=== PATIENT | female | born 1960 | race Caucasian/White ===

== ENCOUNTER → 2019-10-13 | Day surgery (SDC) | payer BC ==
[~2019-10-13] MED LIST: Ketamine 200 MG/20 ML MDV IV ONE; Lactated Ringers 1,000 ML IV SCH; Propofol 200 MG/20 ML SDV IV ONE
[2019-10-13 12:37] VITALS: BP 149/84; PULSE 74
--- NOTE | 2019-10-13 15:26 | OR ---
DATE OF OPERATION: 10/13/2019 PREOPERATIVE DIAGNOSIS: 1. FAMILY HISTORY OF COLON CANCER. 2. HISTORY OF POLYPS. POSTOPERATIVE DIAGNOSIS: 1. FAMILY HISTORY OF COLON CANCER. 2. HISTORY OF POLYPS. SURGEON: Jayy Dumont MD PROCEDURE: FULL-LENGTH COLONOSCOPY WITH FORCEPS POLYP REMOVAL X1. ANESTHESIA: MAC. COMPLICATIONS: None. SPECIMEN: Small sessile polyp, distal sigmoid colon. FINDINGS: 1. Full-length colonoscopy. 2. Marginal prep. 3. Moderate sigmoid diverticulosis. 4. Sessile polyp, sigmoid colon, less than 5 mm. RECOMMENDATIONS: Followup colonoscopy in 5 years. INDICATIONS: The patient has a family history of colon cancer. Prior colonoscopies have had polyps removed. She is due for a 5-year surveillance scope. DESCRIPTION OF PROCEDURE: The patient was prepped and draped, placed in the left lateral decubitus position. A lubricated Olympus colonoscope was inserted and with ease advanced to the cecum. Unfortunately, the patient's prep was quite poor and hard to see in the cecal pouch. There was just so much volume of stool and could not get a great look in the pouch itself, got up alongside the ileocecal valve and there was just too much solid stool present there to suction. Throughout areas of the colon, there was a lot of stool. Most of this could be suctioned and was liquid, but smaller lesions certainly could have been missed. Upon withdrawal, the right transverse and descending colons were unremarkable. Just past the splenic flexure, the patient had prominent diverticular disease all the way to the rectosigmoid region, moderate in severity. No inflammatory changes seen. There was 1 small polyp around 35 cm which was flat, approximately 3 to 4 mm, removed in its entirety with a forceps. The rectal vault appeared benign. Retroflexion showed no perianal lesions. Air was suctioned, scope removed without complication. LUZ MARIA/BILLIE /[id number]
== END ==
LOC: CC.SDS 10:36
PROVIDERS: ATTEND Family Medicine
DX: Z12.11 Encounter for screening for malignant neoplasm of colon (principal); D12.5 Benign neoplasm of sigmoid colon; K57.30 Diverticulosis of large intestine without perforation or abscess without bleeding; F32.9 Major depressive disorder, single episode, unspecified; I10 Essential (primary) hypertension; E78.5 Hyperlipidemia, unspecified; E66.9 Obesity, unspecified; Z86.010 Personal history of colon polyps; Z79.899 Other long term (current) drug therapy; Z80.0 Family history of malignant neoplasm of digestive organs; Z98.890 Other specified postprocedural states; Z87.891 Personal history of nicotine dependence; Z68.42 Body mass index [BMI] 45.0-49.9, adult
CPT/HCPCS: 45380; J2704; J7120

== ENCOUNTER 2021-03-28 11:00 | Inpatient (IN) | payer BC ==
[2021-03-28 12:02] LABS: CHLORIDE,CL 102 mEq/L (98-106); SODIUM,NA 144 mEq/L (136-145)
[2021-03-28 12:18] LABS: PTT,PARTIAL THROMBOPLSTIN TIME 25.6 SEC (23.2-32.3)
[2021-03-28] MEDS ORDERED: Iopamidol 755 Mg/ML 100 ML Bottle IVPUSH ONE (13:07)
[2021-03-28] MEDS ORDERED: Sodium Chloride 0.9% 10 ML Syringe FLUSH PRN (13:17)
[2021-03-28] MEDS ORDERED: Ibuprofen 200 MG Tab PO PRN (13:17)
[2021-03-28] MEDS ORDERED: Dexamethasone 4 MG/ML SDV IVPUSH SCH (13:17)
[2021-03-28] MEDS ORDERED: Acetaminophen 325 MG Tab PO PRN (13:17)
[2021-03-28] MEDS ORDERED: REMDESIVIR 200 MG in Sodium Chloride 0.9% 250 ML IV ONE ×2 (13:17→18:00)
--- NOTE | 2021-03-28 13:50 | EDM.PDOC ---
ED HPI GENERAL MEDICAL PROBLEM - General Chief Complaint: Respiratory Problem Stated Complaint: COVID +-increase SOB Time Seen by Provider: 03/28/21 11:35 Source of Information: Reports: Patient History Limitations: Reports: No Limitations - History of Present Illness INITIAL COMMENTS - FREE TEXT/NARRATIVE: Maxime is a 60 year old female who is Covid + presents to the ED with c/o increasing shortness of breath. She reports onset of symptoms approximately last March 20. Was seen in clinic March 25 and tested positive for covid. She is not vaccinated. She did receive Regen Cov monoclonal antibodies. She reports since that time, she has become increasing short of breath. Reports she feels short of breath with talking. Cough has also become worse. Reports she has also been having headaches for which she has been taking Excedrin migraine. She was having sharp abdominal pain. Was advised to start omeprazole and this has seemed to improve it some. Does report occasional she will still have some abdominal pain. Has been having diarrhea. No vomiting or nausea. Has decreased appetite and feels weak. Has not been eating or drinking much. Reports she has been having some sharp pain between her shoulder blades. Unsure if this worsens with deep breaths. Onset Date: 03/20/21 Duration: Getting Worse Location: Reports: Chest Associated Symptoms: Reports: Chest Pain, Cough, cough w sputum, Headaches, Loss of Appetite, Malaise, Shortness of Breath, Weakness. Denies: Confusion, Diaphoresis, Fever/Chills, Nausea/Vomiting, Rash, Seizure, Syncope Treatments BALL HOLDER: Reports: Other (see below) (Excedrin Migraine) Upper Back Pain Score (Numeric/FACES): 4 - Related Data Allergies Allergy/AdvReac Type Severity Reaction Status Date / Time No Known Allergies Allergy Verified 03/28/21 11:47 Home Meds: Home Meds Ibuprofen [Advil] 200 mg PO DAILY PRN 06/11/14 [History] Fish Oil/[place]-3 Fatty Acids [Fish Oil] 2 gm PO DAILY 04/15/15 [History] Hydrochlorothiazide 25 mg PO DAILY 04/15/15 [History] Ascorbic Acid [Vitamin C] 1,000 mg PO DAILY 08/09/15 [History] Acetaminophen 650 mg PO BID PRN 10/11/19 [History] Aspirin/Acetaminophen/Caffeine [Excedrin Migraine Caplet] 2 tab PO BID PRN 10/11/19 [History] Cholecalciferol (Vitamin D3) [Vitamin D3] 1,000 unit PO DAILY 10/11/19 [History] Coconut Oil 2,000 mg PO DAILY 10/11/19 [History] Gabapentin [Neurontin] 300 mg PO TID 10/11/19 [History] Magnesium Oxide [Magnesium] 400 mg PO DAILY 10/11/19 [History] Nabumetone [Relafen Ds] 500 mg PO BID 10/11/19 [History] Rosuvastatin Calcium 20 mg PO DAILY 10/11/19 [History] Ubidecarenone [Co Q-10] 100 mg PO DAILY 10/11/19 [History] Folic Acid 1 mg PO DAILY 03/28/21 [History] Past Medical History HEENT History: Reports: Impaired Vision Cardiovascular History: Reports: High Cholesterol, Hypertension Musculoskeletal History: Reports: Other (See Below) Other Musculoskeletal History: HIP PAIN - Infectious Disease History Infectious Disease History: Reports: Chicken Pox, Measles, Mumps - Past Surgical History HEENT Surgical History: Reports: Tonsillectomy Female Surgical History: Reports: Section Social & Family History - Tobacco Use Tobacco Use Status *Q: Former Tobacco User Years of Tobacco use: 18 Packs/Tins Daily: 1.5 Used Tobacco, but Quit: Yes Month/Year Tobacco Last Used: 20 - Caffeine Use Caffeine Use: Reports: Coffee, Tea - Recreational Drug Use Recreational Drug Use: No ED ROS GENERAL - Review of Systems Review Of Systems: Comprehensive ROS is negative, except as noted in HPI. ED EXAM, GENERAL - Physical Exam Exam: See Below Exam Limited By: No Limitations General Appearance: Alert, WD/WN, No Apparent Distress Eye Exam: Bilateral Eye: EOMI, Normal Fundi, Normal Inspection, PERRL Nose: Nasal Swelling, Nasal Drainage Throat/Mouth: Normal Inspection, Normal Lips, Normal Teeth, Normal Gums, Normal Oropharynx, Normal Voice, No Airway Compromise Head: Atraumatic, Normocephalic Neck: Normal Inspection, Supple, Non-Tender, Full Range of Motion Respiratory/Chest: No Respiratory Distress, No Accessory Muscle Use, Chest Non- Tender, Wheezing (diffuse) Cardiovascular: Normal Peripheral Pulses, Regular Rate, Rhythm, No Edema, No Gallop, No JVD, No Murmur, No Rub GI/Abdominal: Normal Bowel Sounds, Soft, No Organomegaly, No Distention, No Abnormal Bruit, No Mass, Tender (mild tenderness bilateral lower quadrants) Extremities: Non-Tender, No Pedal Edema, Normal Capillary Refill Neurological: Alert, Oriented, CN II-XII Intact, Normal Cognition, Normal Gait, Normal Reflexes, No Motor/Sensory Deficits Psychiatric: Normal Affect, Normal Mood Skin Exam: Warm, Dry, Intact, Normal Color, No Rash Lymphatic: No Adenopathy Course - Vital Signs Last Recorded V/S: Last Vital Signs Temp 97.9 F 03/28/21 13:17 Pulse 66 03/28/21 13:17 Resp 18 03/28/21 13:17 BP 137/91 H 03/28/21 13:17 Pulse Ox 96 03/28/21 13:17 - Orders/Labs/Meds Orders: Active Orders 24 hr Category Date Time Status CTA Chest W WO Contrast [Ang Chest] [CT] Stat Exams 03/28/21 12:44 Ordered Chest 1V Frontal [CR] Stat Exams 03/28/21 11:21 Taken Medication Orders Acetaminophen (Acetaminophen 325 Mg Tab) 650 mg PO Q4H PRN PRN Reason: Pain (Mild 1-3)/fever Dexamethasone (Dexamethasone 4 Mg/Ml Sdv) 6 mg IVPUSH DAILY RISHI Stop: 04/06/21 08:01 Enoxaparin Sodium (Enoxaparin 40 Mg/0.4 Ml Syringe) 40 mg SUBCUT Q24H RISHI Potassium Chloride/Sodium Chloride (Normal Saline With 20 Meq Kcl) 1,000 mls @ 100 mls/hr IV ASDIRECTED RISHI Stop: 03/28/21 23:59 Ibuprofen (Ibuprofen 200 Mg Tab) 400 mg PO Q6H PRN PRN Reason: Pain (mild 1-3) Potassium Chloride (Potassium Chloride 10 Meq Tab.Er) 20 meq PO BIDMEALS RISHI Sodium Chloride (Sodium Chloride 0.9% 10 Ml Syringe) 10 ml FLUSH ASDIRECTED PRN PRN Reason: Keep Vein Open Labs: Laboratory Tests 03/28/21 03/28/21 03/28/21 Range/Units 11:38 11:38 11:38 WBC 3.4 L (4.0-11.0) 10^3/uL RBC 5.75 H (4.00-5.50) x10^6/uL Hgb 16.4 H (12.0-16.0) g/dL Hct 49.7 H (37.0-47.0) % MCV 86.4 (83.0-97.0) fL MCH 28.5 (27.0-32.0) pg MCHC 33.0 (32.0-36.0) g/dL RDW Coeff of Jay 12.7 (11.0-15.0) % Plt Count 169 (150-400) 10^3/uL Immature Gran % (Auto) 0.3 (0.0-4.9) % Neut % (Auto) 60.1 (41-71) % Lymph % (Auto) 30.1 (24-44) % [place] % (Auto) 8.9 (0-10) % Eos % (Auto) 0.3 (0-6) % Baso % (Auto) 0.3 (0-1) % Neut # (Auto) 2.02 (1.80-8.00) x10^3/uL Lymph # (Auto) 1.01 (0.60-5.00) 10^3/uL [place] # (Auto) 0.30 (0.00-1.50) 10^3/uL Eos # (Auto) 0.01 (0.00-1.50) 10^3/uL Baso # (Auto) 0.01 (0.00-0.50) 10^3/uL Immature Gran # (Auto) 0.01 (0.00-0.49) 10^3/uL PT 10.7 (9.7-12.3) SEC INR 0.98 (0.92-1.18) APTT 25.6 (23.2-32.3) SEC D-Dimer, Quantitative 0.95 H (0.00-0.50) Sodium 144 (136-145) mEq/L Potassium 3.0 L (3.5-5.0) mEq/L Chloride 102 (98-106) mEq/L Carbon Dioxide 33 H (21-32) mmol/L BUN 13 (7-18) mg/dL Creatinine 0.8 (0.6-1.0) mg/dL Est Cr Clr Drug Dosing 73.63 mL/min Estimated GFR (MDRD) > 60 (>=60) mL/min Glucose 132 H (75-99) mg/dL Lactic Acid (0.4-2.0) mmol/L Calcium 9.2 (8.4-10.1) mg/dL Total Bilirubin 0.6 (0.0-1.0) mg/dL AST 54 H (15-37) U/L ALT 60 (12-78) U/L Alkaline Phosphatase 112 (46-116) U/L Creatine Kinase 137 (21-215) U/L Troponin I High Sens 11.1 (<=51) pg/mL NT-Pro-B Natriuret Pep 53 (0-1000) pg/mL Total Protein 7.3 (6.4-8.2) g/dL Albumin 3.4 (3.4-5.0) g/dL 03/28/21 Range/Units 11:38 WBC (4.0-11.0) 10^3/uL RBC (4.00-5.50) x10^6/uL Hgb (12.0-16.0) g/dL Hct (37.0-47.0) % MCV (83.0-97.0) fL MCH (27.0-32.0) pg MCHC (32.0-36.0) g/dL RDW Coeff of Jay (11.0-15.0) % Plt Count (150-400) 10^3/uL Immature Gran % (Auto) (0.0-4.9) % Neut % (Auto) (41-71) % Lymph % (Auto) (24-44) % [place] % (Auto) (0-10) % Eos % (Auto) (0-6) % Baso % (Auto) (0-1) % Neut # (Auto) (1.80-8.00) x10^3/uL Lymph # (Auto) (0.60-5.00) 10^3/uL [place] # (Auto) (0.00-1.50) 10^3/uL Eos # (Auto) (0.00-1.50) 10^3/uL Baso # (Auto) (0.00-0.50) 10^3/uL Immature Gran # (Auto) (0.00-0.49) 10^3/uL PT (9.7-12.3) SEC INR (0.92-1.18) APTT (23.2-32.3) SEC D-Dimer, Quantitative (0.00-0.50) Sodium (136-145) mEq/L Potassium (3.5-5.0) mEq/L Chloride (98-106) mEq/L Carbon Dioxide (21-32) mmol/L BUN (7-18) mg/dL Creatinine (0.6-1.0) mg/dL Est Cr Clr Drug Dosing mL/min Estimated GFR (MDRD) (>=60) mL/min Glucose (75-99) mg/dL Lactic Acid 0.9 (0.4-2.0) mmol/L Calcium (8.4-10.1) mg/dL Total Bilirubin (0.0-1.0) mg/dL AST (15-37) U/L ALT (12-78) U/L Alkaline Phosphatase (46-116) U/L Creatine Kinase (21-215) U/L Troponin I High Sens (<=51) pg/mL NT-Pro-B Natriuret Pep (0-1000) pg/mL Total Protein (6.4-8.2) g/dL Albumin (3.4-5.0) g/dL Meds: Medications Generic Name Dose Route Start Last Admin Trade Name Freq PRN Reason Stop Dose Admin Acetaminophen 650 mg 03/28/21 13:17 Acetaminophen 325 Mg Tab PO Q4H PRN Pain (Mild 1-3)/fever Dexamethasone 6 mg 03/28/21 13:17 Dexamethasone 4 Mg/Ml Sdv IVPUSH 04/06/21 08:01 DAILY [facility] Enoxaparin Sodium 40 mg 03/28/21 20:00 Enoxaparin 40 Mg/0.4 Ml Syringe SUBCUT Q24H [facility] Potassium Chloride/Sodium Chloride 1,000 mls @ 100 mls/hr 03/28/21 14:00 Normal Saline With 20 Meq Kcl IV 03/28/21 23:59 ASDIRECTED RISHI Ibuprofen 400 mg 03/28/21 13:17 Ibuprofen 200 Mg Tab PO Q6H PRN Pain (mild 1-3) Potassium Chloride 20 meq 03/28/21 17:30 Potassium Chloride 10 Meq Tab.Er PO BIDMEALS RISHI Sodium Chloride 10 ml 03/28/21 13:17 Sodium Chloride 0.9% 10 Ml Syringe FLUSH ASDIRECTED PRN Keep Vein Open Discontinued Medications Generic Name Dose Route Start Last Admin Trade Name Freq PRN Reason Stop Dose Admin Remdesivir 200 mg/ Sodium 250 mls @ 250 mls/hr 03/28/21 13:17 Chloride IV 03/28/21 13:18 ONETIME ONE Iopamidol 100 ml 03/28/21 13:07 Iopamidol 755 Mg/Ml 100 Ml Bottle IVPUSH 03/28/21 13:08 ONETIME ONE - Re-Assessments/Exams Free Text/Narrative Re-Assessment/Exam: 03/28/21 13:52 Discussed lab results with patient. With mildly elevated D-Dimer, shortness of breath and mid thoracic pain, will proceed with CTA chest. 03/28/21 16:26 Unfortunately, unable to get PIV access after multiple attempts. Unable to proceed with CTA chest. Patient refuses further IV access attempts at this time. Departure - Departure Time of Disposition: 13:53 Disposition: Admitted As Inpatient 67 Condition: Fair Clinical Impression: COVID-19, Hypoxia - Discharge Information *PRESCRIPTION DRUG MONITORING PROGRAM REVIEWED*: Not Applicable *COPY OF PRESCRIPTION DRUG MONITORING REPORT IN PATIENT BRANDON: Not Applicable Sepsis Event Note (ED) - Focused Exam Vital Signs: Vital Signs Temp Pulse Resp BP Pulse Ox Pulse Ox 03/28/21 11:59 69 22 H 133/110 H 94 L 03/28/21 11:29 97.6 F 76 18 145/96 H 88 L 03/28/21 11:25 88 L - Problem List & Annotations (1) COVID-19 SNOMED Code(s): 167466037 Code(s): U07.1 - COVID-19 Status: Acute Current Visit: Yes (2) Hypoxia SNOMED Code(s): 213274116 Code(s): R09.02 - HYPOXEMIA Status: Acute Current Visit: Yes - Problem List Review Problem List Initiated/Reviewed/Updated: Yes - My Orders Last 24 Hours: My Active Orders 03/28/21 11:21 Chest 1V Frontal [CR] Stat 03/28/21 12:44 CTA Chest W WO Contrast [Ang Chest] [CT] Stat - Assessment/Plan Admission H&P: Please use this note as an admission H&P Last 24 Hours: My Active Orders 03/28/21 11:21 Chest 1V Frontal [CR] Stat 03/28/21 12:44 CTA Chest W WO Contrast [Ang Chest] [CT] Stat Assessment:: Covid 19 Hypoxia Plan: Patient will be admitted acute with telemetry. Will start Remdesivir once PIV access obtained. Start dexamethasone 6 mg PO daily. O2 to keep sats > 92%. Push fluids. K 3.0. Will start K supplements. Daily labs. Encouraged patient to push fluids.
[2021-03-28] MEDS ORDERED: NS + KCl 20mEq/L 1,000 ML IV SCH (14:00)
[2021-03-28] MEDS ORDERED: ACETAMINOPHEN PO PRN (16:33)
[2021-03-28] MEDS ORDERED: CAFFEINE PO PRN (16:33)
[2021-03-28] MEDS ORDERED: ASPIRIN PO PRN (16:33)
[2021-03-28] MEDS: Dexamethasone 4 MG Tab PO SCH (16:42)
[2021-03-28] MEDS: Potassium Chloride 10 MEQ Tab.ER PO SCH (16:42)
[2021-03-28] MEDS: Enoxaparin 40 MG/0.4 ML Syringe SUBCUT SCH (21:32)
[2021-03-28] MEDS: Gabapentin 300 MG Cap PO SCH (21:32)
[2021-03-28] MEDS: NABUMETONE 500 MG PO SCH (23:30)
[2021-03-29 07:36] LABS: PTT,PARTIAL THROMBOPLSTIN TIME 22.3 SEC (23.2-32.3)
[2021-03-29 07:38] LABS: CHLORIDE,CL 104 mEq/L (98-106); SODIUM,NA 144 mEq/L (136-145)
[2021-03-29] MEDS ORDERED: Non-Formulary Medication 1 Each (Ubidecarenone [Co Q-10] 100 MG Capsule) PO SCH (08:00)
[2021-03-29] MEDS: Cholecalciferol (Vitamin D3) 25 MCG Tab PO SCH (08:09)
[2021-03-29] MEDS: Dexamethasone 4 MG Tab PO SCH (08:09)
[2021-03-29] MEDS: Hydrochlorothiazide 25 MG Tab PO SCH (08:09)
[2021-03-29] MEDS: Folic Acid 1 MG Tab PO SCH (08:10)
[2021-03-29] MEDS: Gabapentin 300 MG Cap PO SCH ×3 (08:10→19:37)
[2021-03-29] MEDS: Potassium Chloride 10 MEQ Tab.ER PO SCH ×2 (08:10→17:17)
[2021-03-29] MEDS: Ascorbic Acid 500 MG Tab PO SCH (08:10)
[2021-03-29] MEDS: NABUMETONE 500 MG PO SCH ×2 (08:11→19:39)
--- NOTE | 2021-03-29 10:57 | PCM.PN ---
- General Info Date of Service: 03/29/21 Admission Dx/Problem (Free Text): COVID-19, hypoxia, viral pneumonia Subjective Update: This is a 60 year old female that was admitted yesterday with COVID-19 and pneumonia. Report that she is feeling better today. States that she does have continued shortness of breath when walking. Has had diarrhea. Reports her appetite is improving. She stated she felt like she may want to return home and would discuss this with her . Reports continued cough and fatigue. Functional Status: Reports: Tolerating Diet, Ambulating - Review of Systems General: Reports: Weakness, Fatigue Pulmonary: Reports: Shortness of Breath, Cough. Denies: Wheezing Cardiovascular: Reports: Dyspnea on Exertion Gastrointestinal: Reports: Diarrhea. Denies: Abdominal Pain, Constipation Genitourinary: Reports: No Symptoms Skin: Reports: Pallor Neurological: Reports: Weakness Psychiatric: Reports: No Symptoms - Patient Data Vitals - Most Recent: Last Vital Signs Temp 99.1 F 03/29/21 04:00 Pulse 80 03/29/21 04:00 Resp 20 03/29/21 04:00 BP 142/68 H 03/29/21 04:00 Pulse Ox 93 L 03/29/21 04:00 Weight - Most Recent: 294 lb 6.4 oz Lab Results Last 24 Hours: Laboratory Results - last 24 hr 03/28/21 03/28/21 03/28/21 Range/Units 11:38 11:38 11:38 WBC 3.4 L (4.0-11.0) 10^3/uL RBC 5.75 H (4.00-5.50) x10^6/uL Hgb 16.4 H (12.0-16.0) g/dL Hct 49.7 H (37.0-47.0) % MCV 86.4 (83.0-97.0) fL MCH 28.5 (27.0-32.0) pg MCHC 33.0 (32.0-36.0) g/dL RDW Coeff of Jay 12.7 (11.0-15.0) % Plt Count 169 (150-400) 10^3/uL Immature Gran % (Auto) 0.3 (0.0-4.9) % Neut % (Auto) 60.1 (41-71) % Lymph % (Auto) 30.1 (24-44) % [place] % (Auto) 8.9 (0-10) % Eos % (Auto) 0.3 (0-6) % Baso % (Auto) 0.3 (0-1) % Neut # (Auto) 2.02 (1.80-8.00) x10^3/uL Lymph # (Auto) 1.01 (0.60-5.00) 10^3/uL [place] # (Auto) 0.30 (0.00-1.50) 10^3/uL Eos # (Auto) 0.01 (0.00-1.50) 10^3/uL Baso # (Auto) 0.01 (0.00-0.50) 10^3/uL Immature Gran # (Auto) 0.01 (0.00-0.49) 10^3/uL PT 10.7 (9.7-12.3) SEC INR 0.98 (0.92-1.18) APTT 25.6 (23.2-32.3) SEC D-Dimer, Quantitative 0.95 H (0.00-0.50) Sodium 144 (136-145) mEq/L Potassium 3.0 L (3.5-5.0) mEq/L Chloride 102 (98-106) mEq/L Carbon Dioxide 33 H (21-32) mmol/L BUN 13 (7-18) mg/dL Creatinine 0.8 (0.6-1.0) mg/dL Est Cr Clr Drug Dosing 73.63 mL/min Estimated GFR (MDRD) > 60 (>=60) mL/min Glucose 132 H (75-99) mg/dL Lactic Acid (0.4-2.0) mmol/L Calcium 9.2 (8.4-10.1) mg/dL Total Bilirubin 0.6 (0.0-1.0) mg/dL Direct Bilirubin (0.0-0.3) mg/dL AST 54 H (15-37) U/L ALT 60 (12-78) U/L Alkaline Phosphatase 112 (46-116) U/L Creatine Kinase 137 (21-215) U/L Troponin I High Sens 11.1 (<=51) pg/mL C-Reactive Protein (0.2-0.8) mg/dL NT-Pro-B Natriuret Pep 53 (0-1000) pg/mL Total Protein 7.3 (6.4-8.2) g/dL Albumin 3.4 (3.4-5.0) g/dL 03/28/21 03/29/21 03/29/21 Range/Units 11:38 07:15 07:15 WBC 2.0 L (4.0-11.0) 10^3/uL RBC 5.42 (4.00-5.50) x10^6/uL Hgb 15.6 (12.0-16.0) g/dL Hct 46.9 (37.0-47.0) % MCV 86.5 (83.0-97.0) fL MCH 28.8 (27.0-32.0) pg MCHC 33.3 (32.0-36.0) g/dL RDW Coeff of Jay 12.6 (11.0-15.0) % Plt Count 161 (150-400) 10^3/uL Immature Gran % (Auto) 1.5 (0.0-4.9) % Neut % (Auto) 62.4 (41-71) % Lymph % (Auto) 27.7 (24-44) % [place] % (Auto) 7.9 (0-10) % Eos % (Auto) 0.0 (0-6) % Baso % (Auto) 0.5 (0-1) % Neut # (Auto) 1.26 L (1.80-8.00) x10^3/uL Lymph # (Auto) 0.56 L (0.60-5.00) 10^3/uL [place] # (Auto) 0.16 (0.00-1.50) 10^3/uL Eos # (Auto) 0.00 (0.00-1.50) 10^3/uL Baso # (Auto) 0.01 (0.00-0.50) 10^3/uL Immature Gran # (Auto) 0.03 (0.00-0.49) 10^3/uL PT 10.7 (9.7-12.3) SEC INR 0.98 (0.92-1.18) APTT 22.3 L (23.2-32.3) SEC D-Dimer, Quantitative (0.00-0.50) Sodium (136-145) mEq/L Potassium (3.5-5.0) mEq/L Chloride (98-106) mEq/L Carbon Dioxide (21-32) mmol/L BUN (7-18) mg/dL Creatinine (0.6-1.0) mg/dL Est Cr Clr Drug Dosing mL/min Estimated GFR (MDRD) (>=60) mL/min Glucose (75-99) mg/dL Lactic Acid 0.9 (0.4-2.0) mmol/L Calcium (8.4-10.1) mg/dL Total Bilirubin (0.0-1.0) mg/dL Direct Bilirubin (0.0-0.3) mg/dL AST (15-37) U/L ALT (12-78) U/L Alkaline Phosphatase (46-116) U/L Creatine Kinase (21-215) U/L Troponin I High Sens (<=51) pg/mL C-Reactive Protein (0.2-0.8) mg/dL NT-Pro-B Natriuret Pep (0-1000) pg/mL Total Protein (6.4-8.2) g/dL Albumin (3.4-5.0) g/dL 03/29/21 03/29/21 Range/Units 07:15 07:15 WBC (4.0-11.0) 10^3/uL RBC (4.00-5.50) x10^6/uL Hgb (12.0-16.0) g/dL Hct (37.0-47.0) % MCV (83.0-97.0) fL MCH (27.0-32.0) pg MCHC (32.0-36.0) g/dL RDW Coeff of Jay (11.0-15.0) % Plt Count (150-400) 10^3/uL Immature Gran % (Auto) (0.0-4.9) % Neut % (Auto) (41-71) % Lymph % (Auto) (24-44) % [place] % (Auto) (0-10) % Eos % (Auto) (0-6) % Baso % (Auto) (0-1) % Neut # (Auto) (1.80-8.00) x10^3/uL Lymph # (Auto) (0.60-5.00) 10^3/uL [place] # (Auto) (0.00-1.50) 10^3/uL Eos # (Auto) (0.00-1.50) 10^3/uL Baso # (Auto) (0.00-0.50) 10^3/uL Immature Gran # (Auto) (0.00-0.49) 10^3/uL PT (9.7-12.3) SEC INR (0.92-1.18) APTT (23.2-32.3) SEC D-Dimer, Quantitative (0.00-0.50) Sodium 144 (136-145) mEq/L Potassium 3.4 L (3.5-5.0) mEq/L Chloride 104 (98-106) mEq/L Carbon Dioxide 28 (21-32) mmol/L BUN 11 (7-18) mg/dL Creatinine 0.9 (0.6-1.0) mg/dL Est Cr Clr Drug Dosing 65.45 mL/min Estimated GFR (MDRD) > 60 (>=60) mL/min Glucose 176 H D (75-99) mg/dL Lactic Acid (0.4-2.0) mmol/L Calcium 8.8 (8.4-10.1) mg/dL Total Bilirubin 0.5 (0.0-1.0) mg/dL Direct Bilirubin 0.2 (0.0-0.3) mg/dL AST 79 H (15-37) U/L ALT 103 H (12-78) U/L Alkaline Phosphatase 116 (46-116) U/L Creatine Kinase (21-215) U/L Troponin I High Sens (<=51) pg/mL C-Reactive Protein 0.3 (0.2-0.8) mg/dL NT-Pro-B Natriuret Pep (0-1000) pg/mL Total Protein 6.9 (6.4-8.2) g/dL Albumin 3.2 L (3.4-5.0) g/dL Med Orders - Current: Current Medications Acetaminophen (Acetaminophen 325 Mg Tab) 650 mg PO Q4H PRN PRN Reason: Pain (Mild 1-3)/fever Ascorbic Acid (Ascorbic Acid 500 Mg Tab) 1,000 mg PO DAILY PENDING SALE TO [facility] Last Admin: 03/29/21 08:10 Dose: 1,000 mg Documented by: Cholecalciferol (Cholecalciferol (Vitamin D3) 25 Mcg Tab) 25 mcg PO DAILY PENDING SALE TO [facility] Last Admin: 03/29/21 08:09 Dose: 25 mcg Documented by: Dexamethasone (Dexamethasone 4 Mg Tab) 6 mg PO DAILY PENDING SALE TO [facility] Last Admin: 03/29/21 08:09 Dose: 6 mg Documented by: Enoxaparin Sodium (Enoxaparin 40 Mg/0.4 Ml Syringe) 40 mg SUBCUT Q24H PENDING SALE TO [facility] Last Admin: 03/28/21 21:32 Dose: 40 mg Documented by: Folic Acid (Folic Acid 1 Mg Tab) 1 mg PO DAILY PENDING SALE TO [facility] Last Admin: 03/29/21 08:10 Dose: 1 mg Documented by: Gabapentin (Gabapentin 300 Mg Cap) 300 mg PO TID PENDING SALE TO [facility] Last Admin: 03/29/21 08:10 Dose: 300 mg Documented by: Hydrochlorothiazide (Hydrochlorothiazide 25 Mg Tab) 25 mg PO DAILY PENDING SALE TO [facility] Last Admin: 03/29/21 08:09 Dose: 25 mg Documented by: Ibuprofen (Ibuprofen 200 Mg Tab) 400 mg PO Q6H PRN PRN Reason: Pain (mild 1-3) Last Admin: 03/28/21 21:33 Dose: 400 mg Documented by: Magnesium Oxide (Magnesium Oxide 250 Mg Tab) 500 mg PO DAILY PENDING SALE TO [facility] Last Admin: 03/29/21 08:09 Dose: 500 mg Documented by: Aspirin/Acetaminophen/Caffeine 250/250/65 Own Med 2 tab PO BID PRN PRN Reason: Headache Nabutone [Relafen] 500 Mg Tablet Own Med 500 mg PO BID PENDING SALE TO [facility] Last Admin: 03/29/21 08:11 Dose: 500 mg Documented by: Non-Formulary Medication (Ubidecarenone [Co Q-10]) 100 mg PO DAILY PENDING SALE TO [facility] Potassium Chloride (Potassium Chloride 10 Meq Tab.Er) 20 meq PO BIDMEALS PENDING SALE TO [facility] Last Admin: 03/29/21 08:10 Dose: 20 meq Documented by: Simvastatin (Simvastatin 40 Mg Tab) 40 mg PO BEDTIME PENDING SALE TO [facility] Sodium Chloride (Sodium Chloride 0.9% 10 Ml Syringe) 10 ml FLUSH ASDIRECTED PRN PRN Reason: Keep Vein Open Discontinued Medications Dexamethasone (Dexamethasone 4 Mg/Ml Sdv) 6 mg IVPUSH DAILY PENDING SALE TO [facility] Stop: 04/06/21 08:01 Last Admin: 03/28/21 16:40 Dose: Not Given Documented by: Potassium Chloride/Sodium Chloride (Normal Saline With 20 Meq Kcl) 1,000 mls @ 100 mls/hr IV ASDIRECTED RISHI Stop: 03/28/21 23:59 Last Admin: 03/28/21 21:39 Dose: 100 mls/hr Documented by: Remdesivir 200 mg/ Sodium (Chloride) 250 mls @ 250 mls/hr IV ONETIME ONE Stop: 03/28/21 18:59 Last Admin: 03/28/21 18:45 Dose: 250 mls/hr Documented by: Iopamidol (Iopamidol 755 Mg/Ml 100 Ml Bottle) 100 ml IVPUSH ONETIME ONE Stop: 03/28/21 13:08 - Exam General: Alert, Oriented, Cooperative, Mild Distress Neck: Trachea Midline, No JVD Lungs: Clear to Auscultation, Decreased Breath Sounds (diminished bilateral b ases) Cardiovascular: Regular Rate, Regular Rhythm, No Murmurs GI/Abdominal Exam: Normal Bowel Sounds, Soft, Non-Tender, No Distention (Female) Exam: Deferred Extremities: Normal Range of Motion, No Pedal Edema Skin: Warm, Dry, Intact Neurological: No New Focal Deficit Psy/Mental Status: Alert, Normal Affect, Normal Mood - Patient Data Lab Results Last 24 hrs: Laboratory Results - last 24 hr 03/28/21 03/28/21 03/28/21 Range/Units 11:38 11:38 11:38 WBC 3.4 L (4.0-11.0) 10^3/uL RBC 5.75 H (4.00-5.50) x10^6/uL Hgb 16.4 H (12.0-16.0) g/dL Hct 49.7 H (37.0-47.0) % MCV 86.4 (83.0-97.0) fL MCH 28.5 (27.0-32.0) pg MCHC 33.0 (32.0-36.0) g/dL RDW Coeff of Jay 12.7 (11.0-15.0) % Plt Count 169 (150-400) 10^3/uL Immature Gran % (Auto) 0.3 (0.0-4.9) % Neut % (Auto) 60.1 (41-71) % Lymph % (Auto) 30.1 (24-44) % [place] % (Auto) 8.9 (0-10) % Eos % (Auto) 0.3 (0-6) % Baso % (Auto) 0.3 (0-1) % Neut # (Auto) 2.02 (1.80-8.00) x10^3/uL Lymph # (Auto) 1.01 (0.60-5.00) 10^3/uL [place] # (Auto) 0.30 (0.00-1.50) 10^3/uL Eos # (Auto) 0.01 (0.00-1.50) 10^3/uL Baso # (Auto) 0.01 (0.00-0.50) 10^3/uL Immature Gran # (Auto) 0.01 (0.00-0.49) 10^3/uL PT 10.7 (9.7-12.3) SEC INR 0.98 (0.92-1.18) APTT 25.6 (23.2-32.3) SEC D-Dimer, Quantitative 0.95 H (0.00-0.50) Sodium 144 (136-145) mEq/L Potassium 3.0 L (3.5-5.0) mEq/L Chloride 102 (98-106) mEq/L Carbon Dioxide 33 H (21-32) mmol/L BUN 13 (7-18) mg/dL Creatinine 0.8 (0.6-1.0) mg/dL Est Cr Clr Drug Dosing 73.63 mL/min Estimated GFR (MDRD) > 60 (>=60) mL/min Glucose 132 H (75-99) mg/dL Lactic Acid (0.4-2.0) mmol/L Calcium 9.2 (8.4-10.1) mg/dL Total Bilirubin 0.6 (0.0-1.0) mg/dL Direct Bilirubin (0.0-0.3) mg/dL AST 54 H (15-37) U/L ALT 60 (12-78) U/L Alkaline Phosphatase 112 (46-116) U/L Creatine Kinase 137 (21-215) U/L Troponin I High Sens 11.1 (<=51) pg/mL C-Reactive Protein (0.2-0.8) mg/dL NT-Pro-B Natriuret Pep 53 (0-1000) pg/mL Total Protein 7.3 (6.4-8.2) g/dL Albumin 3.4 (3.4-5.0) g/dL 03/28/21 03/29/21 03/29/21 Range/Units 11:38 07:15 07:15 WBC 2.0 L (4.0-11.0) 10^3/uL RBC 5.42 (4.00-5.50) x10^6/uL Hgb 15.6 (12.0-16.0) g/dL Hct 46.9 (37.0-47.0) % MCV 86.5 (83.0-97.0) fL MCH 28.8 (27.0-32.0) pg MCHC 33.3 (32.0-36.0) g/dL RDW Coeff of Jay 12.6 (11.0-15.0) % Plt Count 161 (150-400) 10^3/uL Immature Gran % (Auto) 1.5 (0.0-4.9) % Neut % (Auto) 62.4 (41-71) % Lymph % (Auto) 27.7 (24-44) % [place] % (Auto) 7.9 (0-10) % Eos % (Auto) 0.0 (0-6) % Baso % (Auto) 0.5 (0-1) % Neut # (Auto) 1.26 L (1.80-8.00) x10^3/uL Lymph # (Auto) 0.56 L (0.60-5.00) 10^3/uL [place] # (Auto) 0.16 (0.00-1.50) 10^3/uL Eos # (Auto) 0.00 (0.00-1.50) 10^3/uL Baso # (Auto) 0.01 (0.00-0.50) 10^3/uL Immature Gran # (Auto) 0.03 (0.00-0.49) 10^3/uL PT 10.7 (9.7-12.3) SEC INR 0.98 (0.92-1.18) APTT 22.3 L (23.2-32.3) SEC D-Dimer, Quantitative (0.00-0.50) Sodium (136-145) mEq/L Potassium (3.5-5.0) mEq/L Chloride (98-106) mEq/L Carbon Dioxide (21-32) mmol/L BUN (7-18) mg/dL Creatinine (0.6-1.0) mg/dL Est Cr Clr Drug Dosing mL/min Estimated GFR (MDRD) (>=60) mL/min Glucose (75-99) mg/dL Lactic Acid 0.9 (0.4-2.0) mmol/L Calcium (8.4-10.1) mg/dL Total Bilirubin (0.0-1.0) mg/dL Direct Bilirubin (0.0-0.3) mg/dL AST (15-37) U/L ALT (12-78) U/L Alkaline Phosphatase (46-116) U/L Creatine Kinase (21-215) U/L Troponin I High Sens (<=51) pg/mL C-Reactive Protein (0.2-0.8) mg/dL NT-Pro-B Natriuret Pep (0-1000) pg/mL Total Protein (6.4-8.2) g/dL Albumin (3.4-5.0) g/dL 03/29/21 03/29/21 Range/Units 07:15 07:15 WBC (4.0-11.0) 10^3/uL RBC (4.00-5.50) x10^6/uL Hgb (12.0-16.0) g/dL Hct (37.0-47.0) % MCV (83.0-97.0) fL MCH (27.0-32.0) pg MCHC (32.0-36.0) g/dL RDW Coeff of Jay (11.0-15.0) % Plt Count (150-400) 10^3/uL Immature Gran % (Auto) (0.0-4.9) % Neut % (Auto) (41-71) % Lymph % (Auto) (24-44) % [place] % (Auto) (0-10) % Eos % (Auto) (0-6) % Baso % (Auto) (0-1) % Neut # (Auto) (1.80-8.00) x10^3/uL Lymph # (Auto) (0.60-5.00) 10^3/uL [place] # (Auto) (0.00-1.50) 10^3/uL Eos # (Auto) (0.00-1.50) 10^3/uL Baso # (Auto) (0.00-0.50) 10^3/uL Immature Gran # (Auto) (0.00-0.49) 10^3/uL PT (9.7-12.3) SEC INR (0.92-1.18) APTT (23.2-32.3) SEC D-Dimer, Quantitative (0.00-0.50) Sodium 144 (136-145) mEq/L Potassium 3.4 L (3.5-5.0) mEq/L Chloride 104 (98-106) mEq/L Carbon Dioxide 28 (21-32) mmol/L BUN 11 (7-18) mg/dL Creatinine 0.9 (0.6-1.0) mg/dL Est Cr Clr Drug Dosing 65.45 mL/min Estimated GFR (MDRD) > 60 (>=60) mL/min Glucose 176 H D (75-99) mg/dL Lactic Acid (0.4-2.0) mmol/L Calcium 8.8 (8.4-10.1) mg/dL Total Bilirubin 0.5 (0.0-1.0) mg/dL Direct Bilirubin 0.2 (0.0-0.3) mg/dL AST 79 H (15-37) U/L ALT 103 H (12-78) U/L Alkaline Phosphatase 116 (46-116) U/L Creatine Kinase (21-215) U/L Troponin I High Sens (<=51) pg/mL C-Reactive Protein 0.3 (0.2-0.8) mg/dL NT-Pro-B Natriuret Pep (0-1000) pg/mL Total Protein 6.9 (6.4-8.2) g/dL Albumin 3.2 L (3.4-5.0) g/dL Result Diagrams: 03/29/21 07:15 03/29/21 07:15 Sepsis Event Note - Focused Exam Vital Signs: Vital Signs Temp Pulse Resp BP Pulse Ox Pulse Ox 03/29/21 04:00 99.1 F 80 20 142/68 H 93 L 1127/21 00:00 99.7 F 70 20 146/76 H 92 L 03/28/21 23:55 96 - Problem List & Annotations (1) Viral pneumonia SNOMED Code(s): 66304321 Code(s): J12.9 - VIRAL PNEUMONIA, UNSPECIFIED Status: Acute Priority: High Current Visit: Yes (2) COVID-19 SNOMED Code(s): 181050977 Code(s): U07.1 - COVID-19 Status: Acute Priority: High Current Visit: Yes (3) Hypoxia SNOMED Code(s): 450468873 Code(s): R09.02 - HYPOXEMIA Status: Acute Priority: High Current Visit: Yes - Problem List Review Problem List Initiated/Reviewed/Updated: Yes - Assessment Assessment:: COVID-19, Hypoxia, Viral Pneumonia - Plan Plan:: 03-29-2021 This is a progress note for a 60 y/o female that was admitted with COVID-19, hypoxia, and viral pneumonia. On admitted patient O2 Sat was 88% RA. Now her O2 Sat is 91% on RA while at rest. Ambulated in hallway and Sats decreased to 82- 84% on RA. Labs WBC 3.4 to 2.0 and K+ improved from 3.0 to 3.4. Creatinine at 0.9. AST increased 79 and ALT 103. CRP 0.3. Lung sounds clear and diminished bilaterally. Plan: Patient discussed possible discharge with her and has elected to remain hospitalized at least one more day. Will encourage patient to ambulate with nursing staff in the hallway with oxygen. Will continue Remdesvir. Repeat labs in the morning.
[2021-03-29] MEDS ORDERED: Loperamide 2 MG Cap PO PRN (13:25)
[2021-03-29] MEDS: REMDESIVIR 100 MG in Sodium Chloride 0.9% 100 ML IV SCH (19:38)
[2021-03-29] MEDS: Enoxaparin 40 MG/0.4 ML Syringe SUBCUT SCH (19:38)
[2021-03-29] MEDS ORDERED: Simvastatin 40 MG Tab PO SCH (20:00)
[2021-03-29] MEDS ORDERED: diphenhydrAMINE 25 MG Cap PO ONE (21:03)
[2021-03-30 08:04] LABS: CHLORIDE,CL 105 mEq/L (98-106); SODIUM,NA 145 mEq/L (136-145)
[2021-03-30] MEDS: Potassium Chloride 10 MEQ Tab.ER PO SCH (08:12)
[2021-03-30] MEDS: Ascorbic Acid 500 MG Tab PO SCH (08:12)
[2021-03-30] MEDS: Dexamethasone 4 MG Tab PO SCH (08:12)
[2021-03-30] MEDS: Cholecalciferol (Vitamin D3) 25 MCG Tab PO SCH (08:12)
[2021-03-30] MEDS: Folic Acid 1 MG Tab PO SCH (08:13)
[2021-03-30] MEDS: Hydrochlorothiazide 25 MG Tab PO SCH (08:13)
[2021-03-30] MEDS: Gabapentin 300 MG Cap PO SCH (08:13)
[2021-03-30] MEDS: NABUMETONE 500 MG PO SCH (08:17)
--- NOTE | 2021-03-30 11:19 | PCM.DCSUM1 ---
Discharge Summary - Hospital Course Free Text/Narrative:: This is a 60 year old female that was admitted for COVID-19, viral pneumonia, and hypoxia. Patient had received COVID diagnose and received monoclonal antibody therapy. Her condition worsened and presented to the ED and admitted IV remdesvir, dexamethasone, and oxygen supplementation. Patient symptoms have improved since admission. Her oxygen saturations continue to decrease to the upper 80's while walking and does exhibit exertional dyspnea. This is an i mprovement from yesterday when her oxygen saturations decreased to the lower 80's. Potassium was initially 3.0 and improved to 3.4 today. Patient feels that she is strong enough to go home at this point. Diagnosis: Stroke: No Modified Roseau Scale: No Symptoms at All Modified Roseau Scale Score: 0 - Discharge Data Discharge Date: 03/30/21 Discharge Disposition: Home, Self-Care 01 Condition: Fair - Referral to Home Health Primary Care Physician: Virginia Arnold PA-C - Discharge Diagnosis/Problem(s) (1) Viral pneumonia SNOMED Code(s): 51875836 ICD Code: J12.9 - VIRAL PNEUMONIA, UNSPECIFIED Status: Acute Priority: High Current Visit: Yes (2) COVID-19 SNOMED Code(s): 176929601 ICD Code: U07.1 - COVID-19 Status: Acute Priority: High Current Visit: Yes (3) Hypoxia SNOMED Code(s): 044585923 ICD Code: R09.02 - HYPOXEMIA Status: Acute Priority: High Current Visit: Yes - Patient Summary/Data Complications: None Hospital Course: Patient has had intermittent oxygen therapy throughout hospital stay with increased oxygen needs with exertion. Has completed 2 doses of Remdesivir and will receive dose today prior to discharge. Labs: potassium has improved from 3.0 to 3.4 with oral potassium replacement. Received COVID-19 recommendation of dexamethasone while in inpatient setting. Symptoms have improved throughout the hospital stay with oxygen saturations that still decrease to the upper 80's with minimal exertion. Sats are 92% on RA at rest. Continues to have frequent cough, weakness, and exertional dyspnea that has improved. Lung sounds are clear and diminished in the bases bilaterally, heart sounds are regular rate and rhythm with no evidence of murmur, gallop, or rubs, no evidence of peripheral edema. - Patient Instructions Diet: Usual Diet as Tolerated Activity: As Tolerated - Discharge Plan *PRESCRIPTION DRUG MONITORING PROGRAM REVIEWED*: Not Applicable *COPY OF PRESCRIPTION DRUG MONITORING REPORT IN PATIENT BRANDON: Not Applicable Prescriptions/Med Rec: Potassium Chloride [Klor-Con 10] 20 meq PO BIDMEALS 15 Days #30 tab.er Home Medications: Home Meds Ibuprofen [Advil] 200 mg PO DAILY PRN 06/11/14 [History] Fish Oil/[place]-3 Fatty Acids [Fish Oil 1,000 MG] 2 gm PO DAILY 04/15/15 [History] Hydrochlorothiazide 25 mg PO DAILY 04/15/15 [History] Ascorbic Acid [Vitamin C] 1,000 mg PO DAILY 08/09/15 [History] Acetaminophen 650 mg PO BID PRN 10/11/19 [History] Aspirin/Acetaminophen/Caffeine [Excedrin Migraine Caplet] 2 tab PO BID PRN 10/11/19 [History] Cholecalciferol (Vitamin D3) [Vitamin D3] 1,000 unit PO DAILY 10/11/19 [History] Coconut Oil 2,000 mg PO DAILY 10/11/19 [History] Gabapentin [Neurontin] 300 mg PO TID 10/11/19 [History] Magnesium Oxide [Magnesium] 400 mg PO DAILY 10/11/19 [History] Nabumetone [Relafen Ds] 500 mg PO BID 10/11/19 [History] Rosuvastatin Calcium 20 mg PO DAILY 10/11/19 [History] Ubidecarenone [Co Q-10] 100 mg PO DAILY 10/11/19 [History] Folic Acid 1 mg PO DAILY 03/28/21 [History] Potassium Chloride [Klor-Con 10] 20 meq PO BIDMEALS 15 Days #30 tab.er 03/30/21 [Rx] Forms: ED Department Discharge Referrals: Virginia Arnold PA-C [Primary Care Provider] - (Follow-up with Virginia Arnold in 10 days with labs prior) - Discharge Summary/Plan Comment DC Time >30 min.: Yes Total # of Minutes for Discharge Time: 40 Discharge Summary/Plan Comment: 1. Discharge to home today with home oxygen unit and utilize to keep oxygen saturations above 90%. 2. Monitor oxygen saturations as needed. 3. Continue to stay active by walking as tolerated. 4. Prescription placed for potassium 20 meq bid 4. Follow-up appointment with Virginia Arnold in 10 days with prior labs. 5. Future labs to include CBC, CMP - General Info Date of Service: 03/30/21 Admission Dx/Problem (Free Text: COVID-19, hypoxia, viral pneumonia Functional Status: Reports: Tolerating Diet, Ambulating - Review of Systems General: Reports: Weakness, Fatigue. Denies: Fever Pulmonary: Reports: Shortness of Breath, Cough. Denies: Sputum Cardiovascular: Reports: Dyspnea on Exertion. Denies: Chest Pain Gastrointestinal: Reports: Diarrhea (diarrhea improved). Denies: Constipation, Nausea, Vomiting Genitourinary: Reports: No Symptoms Musculoskeletal: Reports: No Symptoms Skin: Reports: No Symptoms Neurological: Reports: No Symptoms Psychiatric: Reports: No Symptoms - Patient Data Vitals - Most Recent: Last Vital Signs Temp 99 F 03/30/21 00:00 Pulse 76 03/30/21 04:00 Resp 18 03/30/21 00:00 BP 142/70 H 03/30/21 00:00 Pulse Ox 94 L 03/30/21 00:00 Weight - Most Recent: 294 lb 6.4 oz Lab Results - Last 24 hrs: Laboratory Results - last 24 hr 03/30/21 03/30/21 03/30/21 Range/Units 07:35 07:35 07:35 WBC 4.8 (4.0-11.0) 10^3/uL RBC 5.10 (4.00-5.50) x10^6/uL Hgb 14.6 (12.0-16.0) g/dL Hct 44.0 (37.0-47.0) % MCV 86.3 (83.0-97.0) fL MCH 28.6 (27.0-32.0) pg MCHC 33.2 (32.0-36.0) g/dL RDW Coeff of Jay 12.8 (11.0-15.0) % Plt Count 187 (150-400) 10^3/uL Immature Gran % (Auto) 1.2 (0.0-4.9) % Neut % (Auto) 64.5 (41-71) % Lymph % (Auto) 22.9 L (24-44) % Blair % (Auto) 11.0 H (0-10) % Eos % (Auto) 0.0 (0-6) % Baso % (Auto) 0.4 (0-1) % Neut # (Auto) 3.10 (1.80-8.00) x10^3/uL Lymph # (Auto) 1.10 (0.60-5.00) 10^3/uL Blair # (Auto) 0.53 (0.00-1.50) 10^3/uL Eos # (Auto) 0.00 (0.00-1.50) 10^3/uL Baso # (Auto) 0.02 (0.00-0.50) 10^3/uL Immature Gran # (Auto) 0.06 (0.00-0.49) 10^3/uL PT 10.9 (9.7-12.3) SEC INR 1.00 (0.92-1.18) APTT 23.0 L (23.2-32.3) SEC Sodium 145 (136-145) mEq/L Potassium 3.3 L (3.5-5.0) mEq/L Chloride 105 (98-106) mEq/L Carbon Dioxide 32 (21-32) mmol/L BUN 15 (7-18) mg/dL Creatinine 0.8 (0.6-1.0) mg/dL Est Cr Clr Drug Dosing 73.63 mL/min Estimated GFR (MDRD) > 60 (>=60) mL/min Glucose 168 H (75-99) mg/dL Calcium 9.1 (8.4-10.1) mg/dL Total Bilirubin 0.4 (0.0-1.0) mg/dL Direct Bilirubin (0.0-0.3) mg/dL AST 44 H (15-37) U/L ALT 95 H (12-78) U/L Alkaline Phosphatase 97 (46-116) U/L C-Reactive Protein < 0.2 L (0.2-0.8) mg/dL Total Protein 6.3 L (6.4-8.2) g/dL Albumin 3.1 L (3.4-5.0) g/dL 03/30/21 Range/Units 07:35 WBC (4.0-11.0) 10^3/uL RBC (4.00-5.50) x10^6/uL Hgb (12.0-16.0) g/dL Hct (37.0-47.0) % MCV (83.0-97.0) fL MCH (27.0-32.0) pg MCHC (32.0-36.0) g/dL RDW Coeff of Jay (11.0-15.0) % Plt Count (150-400) 10^3/uL Immature Gran % (Auto) (0.0-4.9) % Neut % (Auto) (41-71) % Lymph % (Auto) (24-44) % Blair % (Auto) (0-10) % Eos % (Auto) (0-6) % Baso % (Auto) (0-1) % Neut # (Auto) (1.80-8.00) x10^3/uL Lymph # (Auto) (0.60-5.00) 10^3/uL Blair # (Auto) (0.00-1.50) 10^3/uL Eos # (Auto) (0.00-1.50) 10^3/uL Baso # (Auto) (0.00-0.50) 10^3/uL Immature Gran # (Auto) (0.00-0.49) 10^3/uL PT (9.7-12.3) SEC INR (0.92-1.18) APTT (23.2-32.3) SEC Sodium (136-145) mEq/L Potassium (3.5-5.0) mEq/L Chloride (98-106) mEq/L Carbon Dioxide (21-32) mmol/L BUN (7-18) mg/dL Creatinine (0.6-1.0) mg/dL Est Cr Clr Drug Dosing mL/min Estimated GFR (MDRD) (>=60) mL/min Glucose (75-99) mg/dL Calcium (8.4-10.1) mg/dL Total Bilirubin (0.0-1.0) mg/dL Direct Bilirubin 0.1 (0.0-0.3) mg/dL AST (15-37) U/L ALT (12-78) U/L Alkaline Phosphatase (46-116) U/L C-Reactive Protein (0.2-0.8) mg/dL Total Protein (6.4-8.2) g/dL Albumin (3.4-5.0) g/dL Med Orders - Current: Current Medications Acetaminophen (Acetaminophen 325 Mg Tab) 650 mg PO Q4H PRN PRN Reason: Pain (Mild 1-3)/fever Ascorbic Acid (Ascorbic Acid 500 Mg Tab) 1,000 mg PO DAILY [facility] Last Admin: 03/30/21 08:12 Dose: 1,000 mg Documented by: Cholecalciferol (Cholecalciferol (Vitamin D3) 25 Mcg Tab) 25 mcg PO DAILY [facility] Last Admin: 03/30/21 08:12 Dose: 25 mcg Documented by: Dexamethasone (Dexamethasone 4 Mg Tab) 6 mg PO DAILY [facility] Last Admin: 03/30/21 08:12 Dose: 6 mg Documented by: Enoxaparin Sodium (Enoxaparin 40 Mg/0.4 Ml Syringe) 40 mg SUBCUT Q24H [facility] Last Admin: 03/29/21 19:38 Dose: 40 mg Documented by: Folic Acid (Folic Acid 1 Mg Tab) 1 mg PO DAILY [facility] Last Admin: 03/30/21 08:13 Dose: 1 mg Documented by: Gabapentin (Gabapentin 300 Mg Cap) 300 mg PO TID [facility] Last Admin: 03/30/21 08:13 Dose: 300 mg Documented by: Hydrochlorothiazide (Hydrochlorothiazide 25 Mg Tab) 25 mg PO DAILY [facility] Last Admin: 03/30/21 08:13 Dose: 25 mg Documented by: Remdesivir 100 mg/ Sodium (Chloride) 100 mls @ 100 mls/hr IV Q24H [facility] Stop: 04/01/21 20:59 Last Admin: 03/29/21 19:38 Dose: 100 mls/hr Documented by: Ibuprofen (Ibuprofen 200 Mg Tab) 400 mg PO Q6H PRN PRN Reason: Pain (mild 1-3) Last Admin: 03/28/21 21:33 Dose: 400 mg Documented by: Loperamide HCl (Loperamide 2 Mg Cap) 2 mg PO Q6H PRN PRN Reason: Diarrhea Last Admin: 03/29/21 13:37 Dose: 2 mg Documented by: Magnesium Oxide (Magnesium Oxide 250 Mg Tab) 500 mg PO DAILY [facility] Last Admin: 03/30/21 08:12 Dose: 500 mg Documented by: Aspirin/Acetaminophen/Caffeine 250/250/65 Own Med 2 tab PO BID PRN PRN Reason: Headache Last Admin: 03/29/21 21:02 Dose: 2 tab Documented by: Nabutone [Relafen] 500 Mg Tablet Own Med 500 mg PO BID [facility] Last Admin: 03/30/21 08:17 Dose: 500 mg Documented by: Non-Formulary Medication (Ubidecarenone [Co Q-10]) 100 mg PO DAILY [facility] Potassium Chloride (Potassium Chloride 10 Meq Tab.Er) 20 meq PO BIDMEALS [facility] Last Admin: 03/30/21 08:12 Dose: 20 meq Documented by: Simvastatin (Simvastatin 40 Mg Tab) 40 mg PO BEDTIME [facility] Last Admin: 03/29/21 19:38 Dose: 40 mg Documented by: Sodium Chloride (Sodium Chloride 0.9% 10 Ml Syringe) 10 ml FLUSH ASDIRECTED PRN PRN Reason: Keep Vein Open Discontinued Medications Dexamethasone (Dexamethasone 4 Mg/Ml Sdv) 6 mg IVPUSH DAILY [facility] Stop: 04/06/21 08:01 Last Admin: 03/28/21 16:40 Dose: Not Given Documented by: Diphenhydramine HCl (Diphenhydramine 25 Mg Cap) 50 mg PO ONETIME ONE Stop: 03/29/21 21:04 Last Admin: 03/29/21 21:10 Dose: 50 mg Documented by: Potassium Chloride/Sodium Chloride (Normal Saline With 20 Meq Kcl) 1,000 mls @ 100 mls/hr IV ASDIRECTED [facility] Stop: 03/28/21 23:59 Last Admin: 03/28/21 21:39 Dose: 100 mls/hr Documented by: Remdesivir 200 mg/ Sodium (Chloride) 250 mls @ 250 mls/hr IV ONETIME ONE Stop: 03/28/21 18:59 Last Admin: 03/28/21 18:45 Dose: 250 mls/hr Documented by: Iopamidol (Iopamidol 755 Mg/Ml 100 Ml Bottle) 100 ml IVPUSH ONETIME ONE Stop: 03/28/21 13:08 Last Admin: 03/29/21 17:28 Dose: Not Given Documented by: - Exam Quality Assessment: Reports: Supplemental Oxygen General: Reports: Alert, Oriented, Cooperative, No Acute Distress Neck: Reports: Supple Lungs: Reports: Clear to Auscultation, Decreased Breath Sounds (bilateral lower lobes) Cardiovascular: Reports: Regular Rate, Regular Rhythm, No Murmurs. Denies: Gallops, Rubs GI/Abdominal Exam: Normal Bowel Sounds, Soft, Non-Tender, No Distention (Female) Exam: Deferred Rectal (Female) Exam: Deferred Extremities: Normal Inspection, No Pedal Edema Skin: Reports: Warm, Dry, Intact Neurological: Reports: No New Focal Deficit Psy/Mental Status: Reports: Alert, Normal Affect, Normal Mood
[2021-03-30] MEDS: REMDESIVIR 100 MG in Sodium Chloride 0.9% 100 ML IV SCH (12:10)
[2021-03-30 12:27] VITALS: BP 142/69; PULSE 78
== END 2021-03-30 14:31 | disposition home or self-care (01) | DRG 137 ==
LOC: SUPCPDRO 11:00 → CC.ED 11:00 → UNDOADMIN 12:38 → CC.MS 12:38
PROVIDERS: ADMIT Nurse Practitioner Family; ATTEND Family Medicine
PROC: XW033E5 Introduction of Remdesivir Anti-infective into Peripheral Vein, Percutaneous Approach, New Technology Group 5 (ICD-10-PCS; principal; 2021-03-28)
PROC: 3E0DX3Z Introduction of Anti-inflammatory into Mouth and Pharynx, External Approach (ICD-10-PCS; 2021-03-28)
DX: U07.1 COVID-19 (principal); J12.82 Pneumonia due to coronavirus disease 2019; H54.7 Unspecified visual loss; E78.00 Pure hypercholesterolemia, unspecified; I10 Essential (primary) hypertension; Z79.82 Long term (current) use of aspirin; Z79.899 Other long term (current) drug therapy; Z98.890 Other specified postprocedural states; Z87.891 Personal history of nicotine dependence
CPT/HCPCS: 36415; 71045; 80053; 82248; 82550; 83605; 83880; 84484; 85025; 85379; 85610; 85730; 86140; 93005; 99285-25; A9270-GY; J1650; J3480; J7050; J8540

== ENCOUNTER 2023-09-25 18:20 | Emergency (ER) | payer BC ==
[2023-09-25] MEDS: Take Home: Amoxicillin/Clavulanate K 875-125 MG Tab, 2 Tab Pack PO ONE (18:43)
[2023-09-25 18:49] VITALS: BP 147/75; PULSE 80
== END 2023-09-25 18:50 | disposition home or self-care (01) ==
LOC: CC.ED 18:20
DX: S61.451A Open bite of right hand, initial encounter (principal); L08.9 Local infection of the skin and subcutaneous tissue, unspecified; I10 Essential (primary) hypertension; Z79.82 Long term (current) use of aspirin; Z79.2 Long term (current) use of antibiotics; Z79.899 Other long term (current) drug therapy; W55.01XA Bitten by cat, initial encounter
CPT/HCPCS: 99283; A9270

== ENCOUNTER → 2025-02-22 | Day surgery (SDC) | payer BC ==
[~2025-02-22] MED LIST changes: -Ketamine 200 MG/20 ML MDV IV ONE; +Ketamine 200 MG/20 ML MDV ONE; +Lactated Ringers 1,000 ML IV ONE; -Lactated Ringers 1,000 ML IV SCH; +Midazolam 1 MG/ML 2 ML SDV ONE; -Propofol 200 MG/20 ML SDV IV ONE; +Propofol 200 MG/20 ML SDV ONE; +fentaNYL 50 MCG/ML SDV ONE
[2025-02-22] MEDS: Lactated Ringers 1,000 ML IV SCH (10:45)
[2025-02-22 16:33] VITALS: BP 120/74; PULSE 105
== END | disposition home or self-care (01) ==
LOC: CC.SDS 10:41
PROVIDERS: ATTEND Surgery
DX: Z12.11 Encounter for screening for malignant neoplasm of colon (principal); D12.4 Benign neoplasm of descending colon; I10 Essential (primary) hypertension; K21.9 Gastro-esophageal reflux disease without esophagitis; F32.A Depression, unspecified; Z79.899 Other long term (current) drug therapy
CPT/HCPCS: 00811; J2250; J2704; J3010; J3490; J7120